=== PATIENT | male | born 2000 | race Caucasian/White ===

== ENCOUNTER 2022-09-17 05:53 | Emergency (ER) | payer MEDICAID, SELFPAY ==
[2022-09-17 06:02] VITALS: BP 119/70; PULSE 76; RESP 18; TEMP 36.5; O2SAT 98; BMI 20.7
--- OUTSIDE RECORDS SUMMARY | 2022-09-17 06:28 | XMS_ITS | Continuity of Care Document ---
:2000 Author Organization [facility] Address Unavailable , Care Team Providers Name Role Phone Not on Staff, PCP Primary Care Physician Unavailable Encounter [facility] Date(s): 03/10/22 - 04/09/22 [facility] Allergies, Adverse Reactions, Alerts No Known Allergies Immunizations Given and Recorded Vaccine Date Status Refusal Reason tetanus/diphtheria/pertussis, acel(Tdap) 01/05/21 Given
--- OUTSIDE RECORDS SUMMARY | 2022-09-17 06:28 | XMS_ITS | Continuity of Care Document ---
:2000 Author Organization [facility] Address [address] [place] [address]- Care Team Providers Name Role Phone Not on Staff, PCP Primary Care Physician Unavailable Encounter [facility] Date(s): 01/05/21 - 01/06/[address] [address]- Encounter Diagnosis Dog bite (Final) - 01/06/21 Discharge Disposition: A-D/C Home Attending Physician: Uriel Bermudez MD Admitting Physician: Uriel Bermudez MD Referring Physician: Not on Staff, Referring MD Allergies, Adverse Reactions, Alerts Substance Reaction Severity Status NKA Active Immunizations Given and Recorded Vaccine Date Status Refusal Reason tetanus/diphtheria/pertussis, acel(Tdap) 01/05/21 Given Medications Augmentin 875 mg-125 mg oral tablet 1 tablet, By Mouth, Every 12 hours, for 7 days, # 14 tablet, 0 Refills, Acute 01/13/21 2:29:00 EST, 01/06/21 2:29:00 EST, Tablet, [facility]/pharmacy #[id number], Partial fill upon patient request if the prescription is for a schedule II opioid drug. Start Date: 01/06/21 Stop Date: 01/13/21 Status: Ordered Results Radiology Reports Exam Date Time Procedure Performing Provider Status 01/05/21 11:56 PM Forearm 2 Views Left Matt Pinto (Abel mackay) Notes:(Forearm 2 Views Left) Reason For Exam: multiple dog bites;PainRESULT: Forearm 2 Views Left Left hand 3 views and left forearm 2 views dated January 05, 2021. No prior studies are available. HISTORY: Pain secondary to dog bites. FINDINGS: These examinations show no evidence of fracture or dislocation. Joint spaces are well preserved. There is soft tissue gas noted in the thenar region and soft tissue gas noted in the radial aspect of the forearm. There is also a soft tissue defect in the radial aspect of the forearm. IMPRESSION: No evidence of some fracture or dislocation. Soft tissue gas and soft tissue defect consistent with dog bites. Examination 76211 and [id number]. Thank you for allowing me to participate in the care of this patient. WSN: [id number] Ordering Physician: Juan Manuel Levy V Dictated By: Nir Marino MD Dictated Date/Time: 01/06/21 0:15 am Reviewed By: Nir Marino MD Signed By: Nir Marino MD Signed Date/Time: 01/06/21 0:15 am Transcribed By: DEBBIE Transcribed Date/Time: 01/06/21 0:12 am Exam Date Time Procedure Performing Provider Status 01/05/21 11:56 PM Hand Min 3 Views Left Lino Pinto; Huong (Roberta ified) Notes:(Hand Min 3 Views Left) Reason For Exam: multiple dog bites;PainRESULT: Hand Min 3 Views Left Left hand 3 views and left forearm 2 views dated January 05, 2021. No prior studies are available. HISTORY: Pain secondary to dog bites. FINDINGS: These examinations show no evidence of fracture or dislocation. Joint spaces are well preserved. There is soft tissue gas noted in the thenar region and soft tissue gas noted in the radial aspect of the forearm. There is also a soft tissue defect in the radial aspect of the forearm. IMPRESSION: No evidence of some fracture or dislocation. Soft tissue gas and soft tissue defect consistent with dog bites. Examination [id number] and [id number]. Thank you for allowing me to participate in the care of this patient. WSN: [id number] Ordering Physician: Juan Manuel Levy V Dictated By: Nir Marino MD Dictated Date/Time: 01/06/21 0:15 am Reviewed By: Nir Marino MD Signed By: Nir Marino MD Signed Date/Time: 01/06/21 0:15 am Transcribed By: DEBBIE Transcribed Date/Time: 01/06/21 0:12 am Vital Signs Most recent to oldest [Reference Range]: 1 2 Oxygen Saturation [94-100 %] 100 % 100 % (01/06/21 1:44 AM) (01/05/21 10:50 PM) Pulse Rate [55-90 bpm] 69 bpm 52 bpm (01/06/21 1:44 AM) *L* (01/05/21 10:50 PM) Blood Pressure [90-138/55-84 mm Hg] 132/79 mm Hg 124/ 74 mm Hg (01/06/21 1:44 AM) (01/05/21 10:50 PM) Respiratory Rate [16-30 br/min] 20 br/min 16 br/mi n (01/06/21 1:44 AM) (01/05/21 10:50 PM) Temperature [96.8-100.4 DegF] 99 DegF 97.6 DegF (01/06/21 1:44 AM) (01/05/21 10:50 PM) Mode of Delivery (Oxygen) Room air Room air (01/06/21 1:44 AM) (01/05/21 10:50 PM) Blood pressure sites Arm, right (01/06/21 1:44 AM) Temperature Route Oral Oral (01/06/21 1:44 AM) (01/05/21 10:50 PM)
[2022-09-17 06:32] LABS: COVID-19 Test Negative (Negative)
[2022-09-17 07:08] VITALS: BP 120/68; PULSE 72; RESP 14; TEMP 36.6; O2SAT 96
--- NOTE | 2022-09-17 07:11 | ED.GENADULT ---
HPI - General Adult General Chief complaint: General Medical Stated complaint: weak, tooth pain, not feeling himself Time Seen by Provider: 09/17/22 06:56 Source: patient and family Mode of arrival: ambulatory Limitations: no limitations History of Present Illness HPI narrative: 22-year-old male came in for evaluation of a headache and body ache. Patient been having headache that is localized to temporal area bilaterally for the past 2 days, headache is better with Motrin and Tylenol, patient declined having fever but does have generalized body ache, patient had a recent exposure to COVID, no coughing, no sneezing. Patient had no history of migraine. Patient been having tooth pain and infection in the past his tooth is hurting now and making the pain worse. Related Data Allergies Allergy/AdvReac Type Severity Reaction Status Date / Time No Known Allergies Allergy Unverified 07/23/20 17:32 Review of Systems Review of Systems: All other systems are reviewed and are negative Constitutional: Reports as per HPI and Reports no additional constitutional complaints Eyes: Reports as per HPI and Reports no additional eye complaints Reports system reviewed and no additional complaints, except as documented Cardiovascular: Reports as per HPI and Reports no additional cardiovascular complaints Respiratory: Reports as per HPI and Reports no additional respiratory complaints Gastrointestinal: Reports as per HPI and Reports no additional gastrointestinal complaints Genitourinary: Reports no additional female genitourinary complaints Musculoskeletal: Reports no additional musculoskeletal complaints Skin/Breast: Reports system reviewed and no additional complaints, except as docu Psychiatric: Reports no additional psychiatric complaints Endocrine: Reports no additional endocrine complaints Hematologic/Lymphatic: Reports no additional hematologic/lymphatic complaints Allergic/Immunologic: Reports no additional allergic/immunologic complaints Reports system reviewed and no additional complaints, except as documented and Reports Abnormal speech present [facility] Social History Social History Alcohol intake: never Smoked in Last 30 Days: Yes Use of substances other than those prescribed or required for medical reasons: Yes Substance Use Type: Marijuana Advance Directives: No Advance Directives Information Provided: Yes Physical Exam ED Vital Signs: Vital Signs - 24 hr 09/17/22 06:02 09/17/22 07:08 Temperature 97.7 F 97.8 F Pulse Rate 76 72 Respiratory Rate 18 14 Blood Pressure 119/70 120/68 Pulse Oximetry 98 96 Oxygen Delivery Method Room Air Room Air BMI result Body Mass Index 20.7 Vital signs have been reviewed as appeared to be correct. Blood pressure normal. Heart rate normal. Respiration rate normal. Temperature normal. Oxygen saturation normal. Appearance: Alert. Oriented X3. No acute distress. Head: Normal external exam. Normocephalic. Atraumatic. No Wolff signs noted. No raccoon eyes noted no facial swelling, decayed tooth was tender to touch 2nd right lower molar tooth. Eyes: PERRLA. EOMI. Conjunctiva and sclera normal. Eyelids normal. ENT: TM's Normal. Pharynx normal. Uvula midline. Moist mucous membranes. No trismus noted. No drooling noted. No muffled voice noted. Neck: Normal inspection. Neck supple. FROM. No adenopathy. Thyroid Normal. No meningeal signs. No neck mass noted. CVS: Normal heart rate and rhythm. Heart sound normal. No murmurs noted. Pulses normal throughout. Respiratory: No respiratory distress. Painless inspiration. Breath sounds normal. No wheezes/rales/rhonchi noted. Chest nontender. No accessory muscle usage noted or decreased air movement noted. Abdomen: Soft and nontender. Bowel sounds normal in all 4 quadrants. No distention noted. No organomegaly noted. No visible injury noted. Back: No CVA tenderness. Full range of motion noted. Skin: Skin warm and dry. Normal skin color. Normal skin turgor. No rashes/lesions/lacerations noted. Extremities: No lower extremity edema. Extremities exhibit normal range of motion. Extremities nontender. Neuro: Oriented X 3. Cranial nerve exam: II-XII are grossly intact No motor deficit. No sensory deficit. Reflexes normal. Course Course Course Narrative: 22-year-old male came in for headache and exposure to COVID patient found to be COVID positive, patient left before my full evaluation will attempt to call the patient home to let him know about his positive result. Medications Administered Discontinued Medications Generic Name Dose Route Start Last Admin Trade Name Cherie PRN Reason Stop Dose Admin Acetaminophen 650 mg 09/17/22 07:09 09/17/22 07:20 Acetaminophen 325 Mg Tablet PO 09/17/22 07:10 650 mg ONCE ONE Administration Ibuprofen 200 mg 09/17/22 07:09 09/17/22 07:20 Ibuprofen 200 Mg Tablet PO 09/17/22 07:10 200 mg ONCE ONE Administration Medical Decision Making Lab Data Lab results reviewed: Yes I reviewed the patient's lab results. Labs: Lab Results 09/17/22 09/17/22 09/17/22 Range/Units 06:14 07:15 07:15 COVID-19 (CORRINE) Negative (Negative) COVID-19 Clin Com See Note Influenza Type A (PCR) NEGATIVE (Negative) Influenza Type B (PCR) NEGATIVE (Negative) RSV RNA Qual (PCR) NEGATIVE (Negative) SARS-CoV-2 RNA (RT-PCR) POSITIVE A (Negative) S. pyogenes GrpA MEHDI Negative (Negative) 09/17/22 Range/Units 07:51 COVID-19 (CORRINE) (Negative) COVID-19 Clin Com Influenza Type A (PCR) TNP (Negative) Influenza Type B (PCR) TNP (Negative) RSV RNA Qual (PCR) TNP (Negative) SARS-CoV-2 RNA (RT-PCR) TNP (Negative) S. pyogenes GrpA MEHDI (Negative) Discharge Plan Discharge Clinical Impression: COVID-19 virus infection Patient Disposition: Home, Self-Care Instructions: Covid-19 Viral Syndrome and Novel Coronavirus (ED) Hey/Ath Referrals: Physician,None [Primary Care Provider] -
[2022-09-17] MEDS: Acetaminophen 325 MG TABLET 650 MG PO (07:20)
[2022-09-17] MEDS: Ibuprofen 200 MG TABLET PO (07:20)
[2022-09-17 07:29] LABS: Strep A Nucleic Acid Negative (Negative)
[2022-09-17 08:16] LABS: Influenza A PCR NEGATIVE (Negative); Influenza B PCR NEGATIVE (Negative); Resp Syncy Virus RNA Qual PCR NEGATIVE (Negative); SARS COV2 PCR INHOUSE POSITIVE (Negative)
== END 2022-09-17 09:00 | disposition home or self-care (01) ==
PROVIDERS: Emergency Provider Emergency Medicine
DX: U07.1 COVID-19 (principal); R51.9 Headache, unspecified; K02.9 Dental caries, unspecified; K08.89 Other specified disorders of teeth and supporting structures; F12.90 Cannabis use, unspecified, uncomplicated
CPT/HCPCS: 0241U; 87635; 87651; 99283; 99284